=== PATIENT | male | born 1955 | race Caucasian/White ===

== ENCOUNTER 2021-04-27 17:53 | Emergency (ER) | payer MEDICARE ==
[~2021-04-27] VITALS: Ht 182.9 cm; Wt 118.3 kg
[2021-04-27 18:19] VITALS: BP 140/87
[2021-04-27] MEDS ORDERED: CEPH500T PO (18:50)
--- NOTE | 2021-04-27 18:51 | PHYS DOC ---
Past History Past Surgical History: No Surgical History (NETO AJ APRN) Alcohol Use: None (NETO AJ APRN) General Adult EDM: Chief Complaint: SKIN PROBLEM HPI: HPI: Patient is a 65-year-old male presents with abscess on back. Patient states he noticed on Wednesday he had some pain on his upper back. Patient states today his looked at it and it was warm to the touch. Patient denies fever. Denies taking anything for discomfort. Patient is a history of abscesses on his back and has had to have I&D's in the past. Patient has history of hypertension. (NETO AJ APRN) Review of Systems: Review of Systems: Constitutional: Denies fever or chills Eyes: Denies change in visual acuity HENT: Denies nasal congestion or sore throat Respiratory: Denies cough or shortness of breath Cardiovascular: Denies chest pain or edema GI: Denies abdominal pain, nausea, vomiting, bloody stools or diarrhea : Denies dysuria Musculoskeletal: Reports left foot pain Integument: Red, swelling, warmth to upper back abscess Neurologic: Denies headache, focal weakness or sensory changes Endocrine: Denies polyuria or polydipsia Lymphatic: Denies swollen glands Psychiatric: Denies depression or anxiety (NETO AJ APRN) Allergies: Allergies: Allergies Coded Allergies Type Severity Reaction Last Updated Verified No Known Drug Allergies 04/27/21 No (NETO AJ APRN) Physical Exam: PE: Constitutional: Well developed, well nourished, no acute distress, non-toxic appearance. [] HENT: Normocephalic, atraumatic, bilateral external ears normal, oropharynx moist, no oral exudates, nose normal. [] Eyes: PERRLA, EOMI, conjunctiva normal, no discharge. [] Neck: Normal range of motion, no tenderness, supple, no stridor. [] Cardiovascular:Heart rate regular rhythm, no murmur [] Lungs & Thorax: Bilateral breath sounds clear to auscultation [] Abdomen: Bowel sounds normal, soft, no tenderness, no masses, no pulsatile masses. [] Skin: Swelling and redness to upper back Back: No tenderness, no CVA tenderness. [] Extremities: No tenderness, range of motion intact, no cyanosis Neurologic: Alert and oriented X 3, normal motor function, normal sensory function, no focal deficits noted. [] Psychologic: Affect normal, judgement normal, mood normal. [] (NETO AJ APRN) Current Patient Data: Vital Signs: Vital Signs Date Time Temp Pulse Resp B/P (MAP) Pulse Ox O2 Delivery O2 Flow Rate FiO2 04/27/21 18:19 98.6 66 20 140/87 97 Room Air (NETO AJ APRN) EKG: EKG: [] (NETO AJ APRN) Radiology/Procedures: Radiology/Procedures: [] (NETO AJ APRN) Heart Score: C/O Chest Pain: No Risk Factors: Risk Factors: DM, Current or recent (<one month) smoker, HTN, HLP, family history of CAD, obesity. Risk Scores: Score 0 - 3: 2.5% MACE over next 6 weeks - Discharge Home Score 4 - 6: 20.3% MACE over next 6 weeks - Admit for Clinical Observation Score 7 - 10: 72.7% MACE over next 6 weeks - Early Invasive Strategies (NETO AJ APRN) Course & Med Decision Making: Course & Med Decision Making Pertinent Labs and Imaging studies reviewed. (See chart for details) [] 65-year-old male presents with abscess on back. Patient has a history of abscesses and has had to have I&D's in the past. Patient denies pain. Upon physical exam abscesses not ready for drainage at this time. Patient given prescription for antibiotic, Keflex. Patient given 1 dose in the emergency room. Ibuprofen and Tylenol at home for discomfort. patient is hemodynamically stable. Afebrile. Patient denies needing anything for pain at this time. Patient is appreciative and okay with discharge plan. (NETO AJ APRN) Dragon Disclaimer: Dragon Disclaimer: This electronic medical record was generated, in whole or in part, using a voice recognition dictation system. (NETO AJ APRN) Attending Co-Sign The patient was seen and interviewed as well as examined at the bedside. The chart was reviewed. The case was discussed. Agree with the plan of care. (MOISES CONSTANTINO DO) Departure Departure: Impression: Primary Impression: Abscess Disposition: HOME / SELF CARE / HOMELESS Condition: STABLE Referrals: BHAVYA TORREZ MD (PCP) Patient Instructions: Abscess Additional Instructions: You are seen in the emergency room for an abscess on your upper back. Based on physical exam abscess was not ready for incision or drainage. I gave you a dose of Keflex in the emergency room to prevent infection. I am sending you home with a prescription for Keflex. Please make sure you take the antibiotic as prescribed and in full. Ibuprofen and Tylenol for discomfort. Follow-up with your PCP for further management. Return to the emergency room if you have worsening symptoms or concerns EMERGENCY DEPARTMENT GENERAL DISCHARGE INSTRUCTIONS Thank you for coming to [facility] (ED) today and trusting us with you care. We trust that you had a positivie experience in our Emergency Department. If you wish to speak to the department management, you may call the director at [phone]. YOUR FOLLOW UP INSTRUCTIONS ARE FOLLOWS: 1. Do you have a private Doctor? If you do not have a private doctor, please ask for a resource list of physicians or clinics that may be able to assist you with follow up care. 2. The Emergency Physician has interpreted your x-rays. The X-Ray specialist will also review them. If there is a change in the findings, you will be notified in 48 hours when at all possible. 3. A lab test or culture has been done, your results will be reviewed and you will be notified if you need a change in treatment. ADDITIONAL INSTRUCTIONS AND INFORMATION: 1. Your care today has been supervised by a physician who is specially trained in emergency care. Many problems require more than one evaluation for a complete diagnosis and treatment. We recommend that you schedule your follow up appointment as recommended to ensure complete treatment of you illness or injury. If you are unable to obtain follow up care and continue to have a problem, or if your condition worsens, we recommend that you return to the ED. 2. We are not able to safely determine your condition over the phone nor are we able to give sound medical advice over the phone. For these safety reasons, if you call for medical advice we will ask you to come to the ED for further evaluation. 3. If you have any questions regarding these discharge instructions please call the ED at [phone]. SAFETY INFORMATION: In the interest of safety, wellness, and injury prevention; we encourage you to wear your sealbelt, if you smoke; quite smoking, and we encourage family to use a protective helmet for bicycling and other sporting events that present an increased risk for head injury. IF YOUR SYMPTOMS WORSEN OR NEW SYMPTOMS DEVELOP, OR YOU HAVE CONCERNS ABOUT YOUR CONDITION; OR IF YOUR CONDITION WORSENS WHILE YOU ARE WAITING FOR YOUR FOLLOW UP APPOINTMENT; EITHER CONTACT YOUR PRIMARY CARE DOCTOR, THE PHYSICIAN WHOSE NAME AND NUMBER YOU WERE GIVEN, OR RETURN TO THE ED IMMEDIATELY. Scripts Cephalexin (CEPHALEXIN) 500 Mg Tablet 1 TAB PO BID for abscess for 5 Days, #10 TAB Prov: NETO AJ APRN 04/27/21 NETO AJ APRN Apr 27, 2021 18:51 MOISES CONSTANTINO DO Apr 28, 2021 13:29
[2021-04-27] MEDS ORDERED: CEPHALEXIN 250 MG CAPSULE PO ONE (19:30)
== END 2021-04-27 19:05 | disposition home or self-care (01) ==
LOC: ER 17:53
DX: L02.212 Cutaneous abscess of back [any part, except buttock and flank] (principal)
CPT/HCPCS: 99283